=== PATIENT | female | born 1965 | race American Indian/Alaskan Native ===

== ENCOUNTER 2021-11-15 16:12 | Emergency (ER) | payer SELFPAY ==
[2021-11-15] MEDS ORDERED: SODIUM CHLORIDE 0.9% 1000 ML 1,000 ML ONE (16:35)
[2021-11-15 18:38] LABS: Hematocrit 35.1 % (30.3-42.9); Hemoglobin 11.6 gm/dl (10.1-14.3); Mean Corpuscular HGB Conc 33 % (30-34); Mean Corpuscular Volume 70 fl (79-97); Platelet Count 390 K/mm3 (140-440); Red Blood Count 4.99 M/mm3 (3.65-5.03)
[2021-11-15 18:55] LABS: Alanine Aminotransferase 12 units/L (7-56); Albumin 4.2 g/dL (3.9-5); Blood Urea Nitrogen 15 mg/dL (7-17); Hemolysis Index 0
[2021-11-15 19:21] LABS: BUN/Creatinine Ratio 21
[2021-11-16] MEDS ORDERED: ONDANSETRON 4 MG/2 ML INJ IV ONE (06:31)
[2021-11-16] MEDS ORDERED: MORPHINE 4 MG/1 ML INJ IV ONE (06:31)
[2021-11-16] MEDS ORDERED: SODIUM CHLORIDE 0.9% 500 ML 500 ML IV ONE (06:32)
--- NOTE | 2021-11-16 06:32 | Emergency Department Report ---
ED General Adult HPI - General Chief complaint: Abdominal Pain Stated complaint: HERNIA SWOLLEN/PAIN/DIARRHEA PUI?: No Time Seen by Provider: 11/16/21 06:06 Source: patient, RN notes reviewed Mode of arrival: Ambulatory Limitations: No Limitations - History of Present Illness Initial comments: The patient was evaluated in the emergency department for symptoms described in the history of present illness. He/she was evaluated in the context of the global COVID-19 pandemic, which necessitated consideration that the patient jc ht be at risk for infection with the virus that causes COVID-19. Institutional protocols and algorithms that pertain to the evaluation of patients at risk for COVID-19 are in a state of rapid change based on information released by regulatory bodies including the CDC and federal and state organizations. These policies and algorithms were followed during the patient's care in the emergency department. Please note that these policies, procedures and recommendations changed on a rapid basis. This patient is a pleasant and cooperative 56-year-old female, who has recently relocated to [place] from [facility], presents to the department today with a complaint of abdominal cramping, umbilical hernia, diarrhea, and difficulty with defecation. She believes that she has had a colonoscopy in the past few years which is essentially unremarkable for emergent findings. No headache. Positive nausea. No chest pain. Positive chronic cough. Questionable dysuria. No extremity weakness/numbness. Symptoms present for a few days. They do not radiate anywhere, but occupy most of her anterior abdominal wall. Pain increases with palpation and decreases with rest and position -: Gradual, days(s) Location: abdomen Severity scale (0 -10): 7 Quality: aching Consistency: other Improves with: other Worsens with: other - Related Data Previous Rx's Medication Instructions Recorded Last Taken Type Acetaminophen [Non-Aspirin Extra 500 mg PO Q6HR PRN #30 tablet 11/16/21 Unknown Rx Strength] Ondansetron [Zofran Odt] 4 mg PO Q8HR PRN #20 tab.rapdis 11/16/21 Unknown Rx Allergies Allergy/AdvReac Type Severity Reaction Status Date / Time No Known Allergies Allergy Verified 11/15/21 16:56 ED Review of Systems ROS: Stated complaint: HERNIA SWOLLEN/PAIN/DIARRHEA Other details as noted in HPI Constitutional: denies: fever Eyes: denies: eye discharge ENT: denies: epistaxis Respiratory: cough Cardiovascular: denies: chest pain Gastrointestinal: abdominal pain, diarrhea Genitourinary: dysuria Neurological: weakness Hematological/Lymphatic: denies: easy bleeding ED Past Medical Hx - Medications Home Medications: Home Medications Medication Instructions Recorded Confirmed Last Taken Type Acetaminophen [Non-Aspirin Extra 500 mg PO Q6HR PRN #30 tablet 11/16/21 Unknown Rx Strength] Ondansetron [Zofran Odt] 4 mg PO Q8HR PRN #20 tab.rapdis 11/16/21 Unknown Rx ED Physical Exam - General Limitations: No Limitations General appearance: alert, in no apparent distress, obese - Head Head exam: Present: atraumatic, normocephalic - Eye Eye exam: Present: normal appearance, EOMI - ENT ENT exam: Present: normal exam, normal orophraynx, mucous membranes moist, norm al external ear exam - Neck Neck exam: Present: normal inspection, full ROM. Absent: tenderness, meningismus - Respiratory Respiratory exam: Present: normal lung sounds bilaterally. Absent: respiratory distress, wheezes, rales, rhonchi, stridor, decreased breath sounds - Cardiovascular Cardiovascular Exam: Present: regular rate, normal rhythm, normal heart sounds. Absent: bradycardia, tachycardia, irregular rhythm, systolic murmur, diastolic murmur, rubs, gallop - GI/Abdominal GI/Abdominal exam: Present: soft, tenderness (There is supraumbilical tenderness. There is no right lower quadrant tenderness. There is no right upper quadrant tenderness.), hernia (Midline abdominal wall hernias appreciated.). Absent: distended, guarding, rebound, rigid - Extremities Exam Extremities exam: Present: normal inspection, full ROM, other (2+ pulses noted in the bilateral upper and lower extremities. There is no palpable cord. negative Homans sign. Muscular compartments are soft. The pelvis is stable.). Absent: pedal edema, calf tenderness - Back Exam Back exam: Present: normal inspection. Absent: tenderness, CVA tenderness (R), CVA tenderness (L), paraspinal tenderness, vertebral tenderness - Neurological Exam Neurological exam: Present: alert, oriented X3, other (No facial droop. Tongue midline. Extraocular movements intact bilaterally. Facial sensation intact to light touch in V1, V2, V3 distribution bilaterally. 5 and a 5 strength in 4 extremities. Sensation intact to light touch in 4 extremities.). Absent: motor sensory deficit - Psychiatric Psychiatric exam: Present: normal affect, normal mood - Skin Skin exam: Present: warm, dry, intact, normal color. Absent: rash ED Course Vital Signs 11/15/21 11/16/21 11/16/21 16:56 04:02 06:11 Temperature 98 F 97.1 F L Pulse Rate 99 H 74 69 Respiratory 16 15 14 Rate Blood Pressure 128/77 126/74 116/74 [Left] O2 Sat by Pulse 97 100 100 Oximetry - Reevaluation(s) Reevaluation #1: 11/16/21 07:25 Differential diagnosis, include but not limited to: Hernia, colitis, diverticulitis, constipation, renal colic Assessment and plan: 56-year-old female with abdominal pain, Difficulty with defecation, no bright red blood per rectum, no black stool, known history of hernia, presenting with abdominal pain. She is resting comfortably on stretcher. She is minimally tender. Laboratory studies nonactionable. Urinalysis nonactionable. We will treat her symptoms. We will obtain CT scan of the abdomen pelvis. We will reassess. I discussed this plan of care with the patient. She endorsed understanding. She is agreeable to the plan of care. ED Medical Decision Making - Lab Data Result diagrams: 11/15/21 17:24 11/15/21 17:24 Vital Signs 11/15/21 11/16/21 11/16/21 16:56 04:02 06:11 Temperature 98 F 97.1 F L Pulse Rate 99 H 74 69 Respiratory 16 15 14 Rate Blood Pressure 128/77 126/74 116/74 [Left] O2 Sat by Pulse 97 100 100 Oximetry Lab Results 11/15/21 11/15/21 11/16/21 Range/Units 17:24 17:24 Unknown WBC 8.5 (4.5-11.0) K/mm3 RBC 4.99 (3.65-5.03) M/mm3 Hgb 11.6 (10.1-14.3) gm/dl Hct 35.1 (30.3-42.9) % MCV 70 L (79-97) fl MCH 23 L (28-32) pg MCHC 33 (30-34) % RDW 15.0 (13.2-15.2) % Plt Count 390 (140-440) K/mm3 Sodium 139 (137-145) mmol/L Potassium 3.9 (3.6-5.0) mmol/L Chloride 101.2 (98-107) mmol/L Carbon Dioxide 27 (22-30) mmol/L Anion Gap 15 mmol/L BUN 15 (7-17) mg/dL Creatinine 0.7 (0.6-1.2) mg/dL Estimated GFR > 60 ml/min BUN/Creatinine Ratio 21 % Glucose 95 (65-100) mg/dL Calcium 10.0 (8.4-10.2) mg/dL Total Bilirubin 0.40 (0.1-1.2) mg/dL AST 15 (5-40) units/L ALT 12 (7-56) units/L Alkaline Phosphatase 111 (35-129) units/L Total Protein 8.5 H (6.3-8.2) g/dL Albumin 4.2 (3.9-5) g/dL Albumin/Globulin Ratio 1.0 % Lipase 20 (13-60) units/L Urine Color Yellow (Yellow) Urine Turbidity Clear (Clear) Urine pH 6.0 (5.0-7.0) Ur Specific [place] 1.025 (1.003-1.030) Urine Protein <15 mg/dl (Negative) mg/dL Urine Glucose (UA) Negative (Negative) mg/dL Urine Ketones Trace (Negative) mg/dL Urine Blood Negative (Negative) Urine Nitrite Negative (Negative) Urine Bilirubin Negative (Negative) Urine Urobilinogen < 2.0 (<2.0) mg/dL Ur Leukocyte Esterase Negative (Negative) Urine WBC (Auto) < 1.0 (0.0-6.0) /HPF Urine RBC (Auto) < 1.0 (0.0-6.0) /HPF - EKG Data -: EKG Interpreted by [place] EKG shows normal: sinus rhythm Rate: normal - EKG Data When compared to previous EKG there are: previous EKG unavailable 11/16/21 07:24 The EKG is interpreted by myself at 6: 47 Sinus rhythm, 68 bpm. Normal axis, normal P wave axis, minimal motion artifact, left ventricular hypertrophy, QTC 4 4 8 ms. Not a STEMI. No prior for comparison. Borderline poor R wave progression V2. - Radiology Data Radiology results: pending, report reviewed, image reviewed CT ABDOMEN AND PELVIS WITH CONTRAST INDICATION: Pt complains of abd pain with diarrhea, known Hernia CONTRAST: Without IV COMPARISON: None available. All CT scans at this location are performed using CT dose reduction for ALARA by means of automated exposure control. FINDINGS: Lung bases clear of pneumonic infiltrates or nodularity. Mild chronic appearing changes. No pneumoperitoneum. Gallbladder and bile ducts normal. Scattered hepatic and renal cysts and probable cysts. No other masses. No lymphadenopathy. No free fluid. No bowel obstruction. No urinary obstruction or obvious calculi. No inflammatory changes. Small fatty paraumbilical hernias noted without bowel or acute change. No pelvic masses. Colonic diverticulosis noted diffusely without evidence of diverticulitis. Mild thickening is seen in the distal descending colon and proximal sigmoid colon without definite surrounding inflammation which may be chronic change. Appendix not visualized. IMPRESSION: 1. No acute abnormalities are seen 2. Diffuse colonic diverticulosis without definite acute diverticulitis. A small area of wall thickening is noted at the junction of the descending colon and in the upper portion of the sigmoid colon which is in an area of diverticulosis and might represent chronic change related to diverticula. Neoplastic disease is not strongly suspected given the appearance and length of the segment of thickening. Signer Name: Andrea Cameron MD Signed: 11/16/2021 7:26 AM Workstation Name: [id number] Critical care attestation.: If time is entered above; I have spent that time in minutes in the direct care of this critically ill patient, excluding procedure time. ED Disposition Clinical Impression: Acute abdominal pain, Paraumbilical hernia, Diverticulosis Disposition: 01 HOME / SELF CARE / HOMELESS Is pt being admited?: No Does the pt Need Aspirin: No Condition: Good Instructions: Abdominal Pain (ED), Abdominal Pain, Adult, Hernia, Adult, [id number] Additional Instructions: Patient may take the pain medication and nausea medication as needed and directed. Drink 4 to 6 cups of water per day, and consume plenty of fiber, vegetables, lean protein. Please avoid consumption of processed foods, and simple carbohydrates. Minimize/avoid consumption of alcohol, tobacco, smoke products, Naprosyn, Motrin, Aleve. Do not take metformin medication for the next 2 days, if patient takes this medication. CT scan abdomen pelvis demonstrated evidence of diverticulosis, nonemergent outpouchings of the large intestine, and very small abdominal wall hernias. The patient was not found to have an emergent condition today in the emergency room which would require emergent surgical intervention, or antibiotic use, or hospitalization. We do recommend follow-up with an outpatient young adult librarian within the next month, for consideration of outpatient colonoscopy. It is important to follow-up with an outpatient GI physician for evaluation for colonoscopy, to make certain that patient does not have a colonic cancer, tumor, malignancy. Please have your primary care doctor or young adult librarian contact the medical records department to follow-up with CT scan abdomen pelvis, follow-up on nonemergent incidental abnormal findings. For the patient's convenience, local primary care, local GI have been listed. Please return to the emergency room right away with new pain, worsened pain, migration of pain, projectile vomiting, change in mental status, confusion, inability tolerate liquid feeds, new, worsened or different symptoms not present on the initial emergency room evaluation Referrals: [facility] [Provider Group] - 3-5 Days [facility] [Provider Group] - 3-5 Days Forms: Work/School Release Form(ED)
[2021-11-16 07:08] LABS: Bilirubin,Urine Negative (Negative); Color,Urine Yellow (Yellow)
[2021-11-16 07:09] LABS: Blood,Urine Negative (Negative); Protein,Urine <15 mg/dL mg/dL (Negative); Urobilinogen,Urine < 2.0 mg/dL (<2.0)
[2021-11-16 07:10] LABS: RBC,Urine < 1.0 /HPF (0.0-6.0); WBC,Urine < 1.0 /HPF (0.0-6.0)
--- NOTE | 2021-11-16 08:31 | Cat Scan Report ---
CT ABDOMEN AND PELVIS WITH CONTRAST INDICATION: Pt complains of abd pain with diarrhea, known Hernia CONTRAST: Without IV COMPARISON: None available. All CT scans at this location are performed using CT dose reduction for ALARA by means of automated e xposure control. FINDINGS: Lung bases clear of pneumonic infiltrates or nodularity. Mild chronic appearing changes. No pneumoperitoneum. Gallbladder and bile ducts normal. Scattered hepatic and renal cysts and probable cysts. No other masses. No lymphadenopathy. No free fluid. No bowel obstruction. No urinary obstructi on or obvious calculi. No inflammatory changes. Small fatty paraumbilical hernias noted without bowel or acute change. No pelvic masses. Colonic diverticulosis noted diffusely without evidence of divert iculitis. Mild thickening is seen in the distal descending colon and proximal sigmoid colon without d efinite surrounding inflammation which may be chronic change. Appendix not visualized. IMPRESSION: 1. No acute abnormalities are seen 2. Diffuse colonic diverticulosis without definite acute diverticulitis. A small area of wall thicken ing is noted at the junction of the descending colon and in the upper portion of the sigmoid colon wh ich is in an area of diverticulosis and might represent chronic change related to diverticula. Neopla stic disease is not strongly suspected given the appearance and length of the segment of thickening. Signer Name: Andrea Cameron MD Signed: 11/16/2021 8:26 AM Workstation Name: [id number]
--- NOTE | 2021-11-16 08:57 | Electrocardiograph Report ---
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
[2021-11-16 12:07] VITALS: BP 134/64
== END 2021-11-16 08:00 | disposition home or self-care (01) ==
LOC: ED 16:12
DX: R10.9 Unspecified abdominal pain (principal); K42.9 Umbilical hernia without obstruction or gangrene; K57.90 Diverticulosis of intestine, part unspecified, without perforation or abscess without bleeding; Z79.899 Other long term (current) drug therapy
CPT/HCPCS: 36415; 74177; 80053; 81001; 83690; 85027; 93005; 96374; 96375; 99284; J2270; J2405; J7030; J7040; Q9967